=== PATIENT | female | born 1945 | race Caucasian/White ===

== ENCOUNTER 2023-03-07 09:53 | Outpatient (OUT) | payer MEDICARE, SELFPAY ==
--- NOTE | 2023-03-07 09:59 | MM_ITS ---
Patient: HE GATES Exam Date: 03/07/2023 : 1945 Gender:F Ordering : DR Suresh Alvarez . Admission #: [id number] Family : Order #: [id number] CLICK HERE TO VIEW EXAM RADIOLOGY REPORT PROCEDURE: MM TOMOSYNTHESIS SCREENING BI COMPARISON: MG MAMM DX 3D RT CAD, 01/17/2022. MG MAMM SCREEN 3D ANGELICA CAD, 07/17/2021. MG MAMM ANGELICA DIAG W CAD DIG, 02/23/2013. INDICATIONS: Screening mammogram Z12.31 Calculator Name NCI Breast Cancer Risk Assessment Tool 5 Year Breast Cancer Risk 1.80% Lifetime Breast Cancer Risk 2.80% Personal Breast Cancer No Personal Ovarian Cancer No Treatments None Family Cancers Father with prostate cancer at age ~80; Grandmother-paternal with lung cancer at age ~80. LOCATION: [facility] BREAST COMPOSITION: Scattered areas fibroglandular density. FINDINGS: DIAGNOSTIC CATEGORY 2--BENIGN FINDING: RIGHT BREAST: No significant suspicious finding. Scattered benign-appearing calcifications are present. No significant change has occurred. LEFT BREAST: No significant suspicious finding. Scattered benign-appearing calcifications are present. No significant change has occurred. RECOMMENDATIONS: ROUTINE MAMMOGRAM AND CLINICAL EVALUATION IN 12 MONTHS. PLEASE NOTE: A NORMAL MAMMOGRAM DOES NOT EXCLUDE THE POSSIBILITY OF BREAST CANCER. A CLINICALLY SUSPICIOUS PALPABLE LUMP SHOULD BE BIOPSIED. Dictated by: Daniel Buchanan M.D. on 03/07/2023 at 11:38 Approved by: Daniel Buchanan M.D. on 03/07/2023 at 11:43
== END 2023-03-07 09:54 | disposition home or self-care (01) ==
LOC: MAMMO 09:53
PROVIDERS: PCP Family Medicine; Visit Provider Family Medicine
DX: Z12.31 Encounter for screening mammogram for malignant neoplasm of breast (principal); Z80.1 Family history of malignant neoplasm of trachea, bronchus and lung; Z80.42 Family history of malignant neoplasm of prostate
CPT/HCPCS: 77063; 77067

== ENCOUNTER 2023-06-13 09:26 | Outpatient (OUT) | payer MEDICARE, SELFPAY ==
[2023-06-13 10:48] LABS: Anion Gap 10.7; BUN Creatinine Ratio 28.6; Calcium 8.9 mg/dL (8.5-10.1); Carbon Dioxide 28.9 mmol/L (21.0-32.0); Chloride 103 mmol/L (98-107); Estimated GFR (African America >60 (>=60); Estimated GFR (Non-African Ame >60 (>=60); Glucose 89 mg/dL (74-106); Potassium 4.6 mmol/L (3.5-5.1); Sodium 138 mmol/L (136-145)
== END 2023-06-13 09:27 | disposition home or self-care (01) ==
LOC: LAB 09:29
PROVIDERS: PCP Family Medicine; Visit Provider Personal Emergency Response Attendant
DX: Z01.812 Encounter for preprocedural laboratory examination (principal)
CPT/HCPCS: 36415; 80048

== ENCOUNTER 2024-03-09 09:22 | Outpatient (OUT) | payer MEDICARE, SELFPAY ==
--- NOTE | 2024-03-09 09:43 | MM_ITS ---
Patient Name: HE GATES MR#: [id number] : 1945 Exam Date: 03/09/2024 Ordering Doctor: DR Suresh Alvarez . RADIOLOGY REPORT PROCEDURE: MM TOMOSYNTHESIS SCREENING BI COMPARISON: MG MAMM DX 3D RT CAD, 01/17/2022. MM TOMOSYNTHESIS SCREENING BI, 03/07/2023. INDICATIONS: Screening mammogram Calculator Name NCI Breast Cancer Risk Assessment Tool 5 Year Breast Cancer Risk 1.80% Lifetime Breast Cancer Risk 2.60% Personal Breast Cancer No Personal Ovarian Cancer No Treatments None Family Cancers Father with prostate cancer at age ~80; Grandmother-paternal with lung cancer at age ~80. LOCATION: [facility] BREAST COMPOSITION: There are scattered areas of fibroglandular density. FINDINGS: DIAGNOSTIC CATEGORY 2--BENIGN FINDING. NO CHANGE FROM COMPARISON. Scattered benign-appearing nodules are present. Scattered benign-appearing calcifications are present. Scattered benign-appearing lymph nodes are present. RIGHT BREAST: No significant suspicious finding. LEFT BREAST: No significant suspicious finding. RECOMMENDATIONS: ROUTINE MAMMOGRAM AND CLINICAL EVALUATION IN 12 MONTHS. PLEASE NOTE: A NORMAL MAMMOGRAM DOES NOT EXCLUDE THE POSSIBILITY OF BREAST CANCER. A CLINICALLY SUSPICIOUS PALPABLE LUMP SHOULD BE BIOPSIED. Dictated by: Tex Carr MD on 03/09/2024 at 11:01 Approved by: Tex Carr MD on 03/09/2024 at 11:37
== END 2024-03-09 09:23 | disposition home or self-care (01) ==
LOC: MAMMO 09:22
PROVIDERS: PCP Family Medicine; Visit Provider Family Medicine
DX: Z12.31 Encounter for screening mammogram for malignant neoplasm of breast (principal); Z80.42 Family history of malignant neoplasm of prostate; Z80.1 Family history of malignant neoplasm of trachea, bronchus and lung
CPT/HCPCS: 77063; 77067

== ENCOUNTER 2024-07-21 19:52 | Outpatient (OUT) | payer MEDICARE, SELFPAY ==
--- OUTSIDE RECORDS SUMMARY | 2024-07-21 19:55 | XMS_ITS | CCD ---
Author Organization [facility] Care Team Providers Care Cleat Layer Name Role Phone BLAKE, DR NOLEN Admitting Unavailable BLAKE, DR NOLEN Attending Unavailable HOY, DR NOLEN Primary Care Unavailable HOY, DR NOLEN Consulting Unavailable HOY, DR NOLEN Admitting Unavailable HOY, DR NOLEN Attending Unavailable HOY, DR NOLEN Primary Care Unavailable HOY, DR NOLEN Admitting Unavailable HOY, DR NOLEN Attending Unavailable LISSYY, DR NOLEN Primary Care Unavailable BLAKE, DR NOLEN Consulting Unavailable JIM, DR LIBBY Jain Consulting Unavailable BLAKE, DR NOLEN Admitting Unavailable HOY, DR NOLEN Attending Unavailable HOY, DR NOLEN Primary Care Unavailable HOY, DR NOLEN Consulting Unavailable ZIEBER, DR DANIEL Santos Consulting Unavailable BLAKE, DR NOLEN Admitting Unavailable HOChris, DR NOLEN Attending Unavailable HOChris, DR NOLEN Primary Care Unavailable HOY, DR NOLEN Consulting Unavailable WEST, DR LIBBY Jain Consulting Unavailable PRASAD NORWOOD Attending Unavailable DONAVAN FERNANDEZ Attending Unavailable PRASAD NORWOOD Attending Unavailable JR. HE GEORGE C Attending Unavaila PRASAD Wilson Attending Unavailable PRASAD NORWOOD Attending Unavailable PRASAD NORWOOD Attending Unavailable PRASAD NORWOOD Attending Unavailable KENNEDY GUTIÉRREZ Attending Unavailable Callum Alvarez MD Primary Care Provider [phone] BETO Norwood Attending Provider MD Callum Alvarez Primary Care Provider [phone] Callum Alvarez Primary Care Unavailable Prasad Norwood Attending Unavailable Prasad Norwood Admitting Unavailable Allergies Allergy Classification Reported Allergen(s) Allergy Type Date of Onset Reaction(s) Facility (2 sources) Amoxicillin Drug Allergy 05-22-20 17 Vomiting [facility] Repository (1 source) Nitrofurantoin Drug Allergy 02-07-20 21 [facility] Repository (1 source) Penicillin Drug Allergy 12-21-19 17 [facility] Repository (1 source) Sulfonamides (Antibiotic) Drug allergy (disorder) 12-21-19 17 [facility] Repository (4 sources) Amoxicillin Drug Allergy 03-12-20 23 [facility] (5 sources) Nitrofurantoin Drug Allergy 03-12-20 23 Unknown Reaction [facility] (5 sources) Penicillins Propensity to adverse reactions to drug 03-12-20 23 Rash [facility] (4 sources) Sulfacetamide Drug Allergy 03-12-20 23 [facility] (3 sources) Phenazopyridine Drug Allergy 06-18-20 [facility] (2 sources) Sulfonamides (Antibiotic); Translations: [Sulfa (Sulfonamide Antibiotics)] Allergy to substance 07-10-20 Unknown Reaction [facility] (1 source) Amoxicillin Drug Allergy 07-10-20 [facility] Repository (1 source) Nitrofurantoin Drug Allergy 07-10-20 [facility] Rep[facility] (1 source) Penicillins Drug allergy (disorder) 07-10-20 [facility] Rep[facility] Medications Current Medications Medication Drug Class(es) Dates Sig (Normalized) Sig (Original) acetaminophen 500 mg / diphenhydrAMINE hydrochloride 25 mg oral tablet (4 sources) Histamine-1 Receptor Antagonist take 25-500 mg by mouth once as needed diphenhydrAMINE- acetaminophen (Tylenol PM) 25-500 MG per tablet Take 1 tablet by mouth as needed at bedtime for sleep. Active citalopram 10 mg oral tablet (3 sources) Serotonin Reuptake Inhibitor Start: 07-10-2024 Citalopram Active 10 MG PO .prn July 10, 2024 12:00am take 1 tablet by mouth once adonay y citalopram (CeleXA) 10 MG tablet Take 10 mg by mouth Daily Active clindamycin 150 mg oral capsule (4 sources) Lincosamide Antibacterial Start: 12-31-2022 take 4 capsules by mouth every hour clindamycin (Cleocin) 150 MG capsule TAKE 4 CAPSULES BY MOUTH 1 HOUR PRIOR TO DENTAL APPOINTMENT 12/31/2022 Active dexamethasone 6 mg oral tablet (4 sources) Corticosteroid Start: 09-05-2022 take 1 tablet by mouth in the morning dexAMETHasone (Decadron) 6 MG tablet Take 6 mg by mouth in the morning. 09/05/2022 Active meclizine hydrochloride 25 mg oral tablet (4 sources) Antiemetic meclizine (Antivert) 25 MG tablet Take 12.5 mg by mouth 3 (three) times a day as needed for dizziness. Active meloxicam 15 mg oral tablet (5 sources) Nonsteroidal Anti-inflammatory Drug Start: 07-10-2024 Meloxicam Active 15 MG PO .prn July 10, 2024 12:00am take 1 tablet by mouth in the mo rning meloxicam (Mobic) 7.5 MG tablet Take 7.5 mg by mouth in the morning. Active temazepam 7.5 mg oral capsul e (4 sources) Benzodiazepine temazepam (Robinson ril) 7.5 MG capsule Take 15 mg by mouth as needed at bedtime for sleep. Active Problems Active Problems Problem Classification Problem Date Documented Date Episodic/Chronic Mycoses (1 source) Onychomycosis; Translations: [Tinea unguium] 06-23-2024 Episodic Osteoarthritis (5 sources) Unilateral primary osteoarthritis, left hip; Translations: [Bilateral primary osteoarthritis of hip] Onset: 02-20-2022 Chronic Other connective tissue disease (1 source) Pain in both feet; Translations: [Pain in right foot] 06-23-2024 Episodic Other connective tissue disease (1 source) Pain in left foot; Translations: [Pain in left foot] 06-23-2024 Episodic Other lower respiratory disease (2 sources) Snoring; Translations: [Snoring] 06-18-2024 Episodic Other nervous system disorders (4 sources) Bilateral carpal tunnel syndrome; Translations: [Carpal tunnel syndrome, bilateral upper limbs] Onset: 06-15-2024 06-15-2024 Chronic Other nervous system disorders (1 source) Neuropathy; Translations: [Polyneuropathy, unspecified] 06-23-2024 Chronic Other nervous system disorders (4 sources) Paresthesia of left upper limb; Translations: [Paresthesia of skin] Onset: 06-15-2024 06-15-2024 Episodic Other nervous system disorders (4 sources) Paresthesia of hand ; Translations: [Paresthesia of skin] Onset: 06-15-2024 06-15-2024 Episodic Other non-traumatic joint disorders (1 source) Pain of joint of left foot; Translations: [Pain in left ankle and joints of left foot] 06-23-2024 Episodic Other nutritional; endocrine; and metabolic disorders (2 sources) Obesity caused by energy imbalance; Translations: [Other obesity due to excess calories] 06-18-2024 Chronic Residual codes; unclassified (2 sources) Obstructive sleep apnea syndrome; Translations: [Obstructive sleep apnea (adult) (pediatric)] 06-18-2024 Chronic Residual codes; unclassified (2 sources) Hypersomnia; Translations: [Hypersomnia, unspecified] 06-18-2024 Chronic Unclassified (2 sources) CONTACT W/AND (SUSP) EXPOS COVID-19; Translations: [CONTACT W/AND (SUSP) EXPOS COVID-19] Onset: 09-12-2022 Viral infection (1 source) COVID-19; Translations: [COVID-19] Onset: 09-12-2022 Past or Other Problems Problem Classification Problem Date Documented Da te Episodic/Chronic Conditions associated with dizziness or vertigo (5 sources) Dizziness and giddiness; Translations: [Benign paroxysmal vertigo, bilateral] Onset: 10-11-2021 Episodic Nonmalignant breast conditions (4 sources) Mastodynia; Translations: [MASTODYNIA] Onset: 01-17-2022 Episodic Other non-traumatic joint disorders (4 sources) Pain in left hip; Translations: [PAIN IN LEFT HIP] Onset: 02-23-2022 Episodic Unclassified (1 source) CONTACT W/AND (SUSP) EXPOS COVID-19; Translations: [CONTACT W/AND (SUSP) EXPOS COVID-19] Onset: 09-05-2022 Results Test Name Value Interpretation Reference Range Facil ity XR foot LT 2Von 07-10-2024 XR foot LT 2V [place] [address] XRay Report Signed Patient: Ayse Gates MR#: [id number] 319 : 1945 Acct:[id number] Age/Sex: 79 / F ADM Date: 07/10/24 Loc: [place] Room: Type: [facility] Attending Dr: Prasad Norwood DPM Copies to: Prasad Norwood DPM Ordering Provider: Prasad Norwood DPM Date of Service: 07/10/24 XR/XR foot LT 2V: LEFT FOOT INJECTION XR foot LT 2V 07/10/2024 12:35 PM SIGNS AND SYMPTOMS: LEFT FOOT INJECTION PROTOCOL: Intraoperative views of the left foot COMPARISON: None FINDINGS: Intraoperative views demonstrate needle localization along the tarsometatarsal junctions at the base of the third and fourth digits. Cumulative Air Kerma in mGy: 0.369 mGy XR/XR foot LT 2V IMPRESSION: Intraoperative views demonstrate needle localization along the tarsometatarsal junctions at the base of the third and fourth digits. Impression dictated by: Marshal Eastman M.D.07/10/2024 4:05 PM Dictation Location: [place] [address] Transcribed By: JU 07/10/24 160 Dictated By: Marshal Eastman II, MD 07/10/241603 Signed By: 07/10/24 160 Normal [facility] Covid-19 PCR (CVDTB)on 08-17 SARS-CoV-2 (COVID-19) RNA SWEETIE+probe Ql (Unsp spec) Detected Critically abnormal NOT DETECTED [facility] Comment on above: Result Comment: This test is not yet rosalind roved or cleared by the [place] FDA. When there are no FDA-approved or cleared tests available, and other criteria are met, FDA can make tests available under an emergency access mechanism called an Emergency Use Authorization (EUA). The EUA for this test is supported by the Cath Lab Radiological Technologist of Health and Human Service's (HHS's) declaration that circumstances exist to justify the emergency use of in vitro diagnostics for the detection and/or diagnosis of the virus that causes COVID-19. This EUA will remain in effect (meaning this test can be used) for the duration of the COVID-19 declaration justifying emergency of IVDs, unless it is terminated or revoked by FDA (after which the test may no longer be used). Performed By: #### C VDTB #### [facility] [address] [place] [address] Dr. Oliver Muhammad XR HIP LT INJon 02-23-2022 XR HIP LT INJ EXAMINATION: XR HIP LT INJ HISTORY: Pain of left hip joint COMPARISON: No relevant comparison available. FLUOROSCOPY TIME: Fluoro time measures 1.2 minutes and 2 images were obtained. TECHNIQUE: A joint injection was performed in the usual sterile manner after obtaining informed consent. Standard level fluoroscopic mode of operation utilized. FINDINGS: JOINT: Left hip. NEEDLE: 22 gauge, 3.5 spinal needle. MEDICATION: 2cc buffered 1% lidocaine for subcutaneous anesthesia 2cc Omnipaque-300 iodinated contrast to visualize the joint space Mixture of Kenalog 40 mg, 0.5% Bupivacaine 2 mL and Omnipaque 300 10mL was injected into the joint space. TECHNIQUE: Anterior approach with prior localization of the femoral artery. A single stick was successful in gaining access to the joint space. CLINICAL: Near complete resolution of hip pain following the injection. COMPLICATIONS: None. OTHER: Negative. IMPRESSION: Technically successful left hip therapeutic arthrogram Electronically authenticated by: LIBBY FERNANDEZ Date: 2022-02-23 08:35 Normal [facility] MG MAMM DX 3D RT CADon 01-17 MG MAMM DX 3D RT CAD Patient: AYSE GATES Exam Date: 01/17/2022 : 1945 Gender:F Ordering : DR CALLUM ALVAREZ . Admission #: [id number] Family : Order #: [id number] CLICK HERE TO VIEW EXAM RADIOLOGY REPORT PROCEDURE: MAMMOGRAM DIAGNOSTIC 3D RIGHT CAD, 01/17/2022, 13:39 ULTRASOUND BREAST RIGHT LIMITED, 01/17/2022, 14:17 COMPARISON: MG MAMM SCREEN ANGELICA W CAD, 07/08/2020. MG MAMM SCREEN ANGELICA W CAD, 06/16/2018. MG MAMM ANGELICA DIAG W CAD DIG, 02/23/2013. MG MAMM SCREEN 3D ANGELICA CAD, 07/17/2021. INDICATIONS: Pain of breast Calculator Name NCI Breast Cancer Risk Assessment Tool 5 Year Breast Cancer Risk 1.90% Lifetime Breast Cancer Risk 3.40% Personal Breast Cancer No Personal Ovarian Cancer No Treatments None Family Cancers Father with prostate cancer at age 80; Grandmother-paternal with lung cancer at age 80. LOCATION: [facility] BREAST COMPOSITION: Scattered areas fibroglandular density. FINDINGS: DIAGNOSTIC CATEGORY 2--BENIGN FINDING: RIGHT BREAST: Stable calcifications and subareolar fibroglandular tissue. No new or suspicious findings to account for patient's medial breast tenderness. Ultrasound evaluation of the medial breast demonstrates normal appearing fibroglandular tissue; no suspicious findings. RECOMMENDATIONS: ROUTINE MAMMOGRAM AND CLINICAL EVALUATION IN 12 MONTHS. PLEASE NOTE: A NORMAL MAMMOGRAM DOES NOT EXCLUDE THE POSSIBILITY OF BREAST CANCER. A CLINICALLY SUSPICIOUS PALPABLE LUMP SHOULD BE BIOPSIED. Dictated by: Daniel Buchanan M.D. on 01/17/2022 at 15:46 Approved by: Daniel Buchanan M.D. on 01/17/2022 at 15:48 Normal [facility] US BREAST RIGHT LIMITEDon US BREAST RIGHT LIMITED Patient: AYSE GATES Exam Date: 01/17/2022 : 1945 Gender:F Ordering : DR CALLUM ALVAREZ . Admission #: [id number] Family : Order #: [id number] CLICK HERE TO VIEW EXAM RADIOLOGY REPORT PROCEDURE: MAMMOGRAM DIAGNOSTIC 3D RIGHT CAD, 01/17/2022, 13:39 ULTRASOUND BREAST RIGHT LIMITED, 01/17/2022, 14:17 COMPARISON: MG MAMM SCREEN ANGELICA W CAD, 07/08/2020. MG MAMM SCREEN ANGELICA W CAD, 06/16/2018. MG MAMM ANGELICA DIAG W CAD DIG, 02/23/2013. MG MAMM SCREEN 3D ANGELICA CAD, 07/17/2021. INDICATIONS: Pain of breast Calculator Name NCI Breast Cancer Risk Assessment Tool 5 Year Breast Cancer Risk 1.90% Lifetime Breast Cancer Risk 3.40% Personal Breast Cancer No Personal Ovarian Cancer No Treatments None Family Cancers Father with prostate cancer at age 80; Grandmother-paternal with lung cancer at age 80. LOCATION: [facility] BREAST COMPOSITION: Scattered areas fibroglandular density. FINDINGS: DIAGNOSTIC CATEGORY 2--BENIGN FINDING: RIGHT BREAST: Stable calcifications and subareolar fibroglandular tissue. No new or suspicious findings to account for patient's medial breast tenderness. Ultrasound evaluation of the medial breast demonstrates normal appearing fibroglandular tissue; no suspicious findings. RECOMMENDATIONS: ROUTINE MAMMOGRAM AND CLINICAL EVALUATION IN 12 MONTHS. PLEASE NOTE: A NORMAL MAMMOGRAM DOES NOT EXCLUDE THE POSSIBILITY OF BREAST CANCER. A CLINICALLY SUSPICIOUS PALPABLE LUMP SHOULD BE BIOPSIED. Dictated by: Daniel Buchanan M.D. on 01/17/2022 at 15:46 Approved by: Daniel Buchanan M.D. on 01/17/2022 at 15:48 Normal [facility] Vital Signs Date Time Vital Sign Value Performing Clinician Facility 07-10-2024 12:14-0400 Diastolic blood pressure 100 mm[Hg] MD Callum Alvarez Work Phone: [facility] 07-10-2024 12:14-0400 Heart rate 82 /min MD Callum Alvarez Work Phone: [facility] 07-10-2024 12:14-0400 Respiratory rate 16 /min MD Callum Alvarez Work Phone: [facility] 07-10-2024 12:14-0400 SaO2% (BldA) [Mass fraction] 98 % MD Callum Alvarez Work Phone: [facility] 07-10-2024 12:14-0400 Systolic blood pressure 149 mm[Hg] MD Callum Alvarez Work Phone: [facility] 07-10-2024 10:41-0400 Body height 160.02 cm MD Callum Alvarez Work Phone: [facility] 07-10-2024 10:41-0400 Body temperature 97.5 [degF] MD Callum Alvarez Work Phone: [facility] 07-10-2024 10:41-0400 Body weight 99.79 kg MD Callum Alvarez Work Phone: [facility] 06-18-2024 09:32-0400 Body height 160 cm Kennedy Narciso DO Work Phone: [facility] 06-18-2024 09:32-0400 Body mass index (BMI) [Ratio] 38.97 kg/m2 Kennedy Narciso DO Work Phone: [facility] 06-18-2024 09:32-0400 Body weight 99.79 kg Kennedy Narciso DO Work Phone: [facility] 06-18-2024 09:32-0400 Diastolic blood pressure 80 mm[Hg] Kennedy Narciso DO Work Phone: [facility] 06-18-2024 09:32-0400 Heart rate 78 /min Kennedy Narciso DO Work Phone: [facility] 06-18-2024 09:32-0400 SaO2% (BldA) [Mass fraction] 98 % Kennedy Narciso DO Work Phone: [facility] 06-18-2024 09:32-0400 Systolic blood pressure 122 mm[Hg] Kennedy Narciso DO Work Phone: [facility] Healthcare Encounters Encounter Date Encounter Type Care Provider Facility Start: 07-10-2024 End: 07-10-2024 Admission to same day surgery center MD Callum Alvarez Work Phone: [facility] [address] [place] Start: 07-10-2024 End: 07-10-2024 ambulatory MD Callum Alvarez Work Phone: [facility] Work Phone: Start: 06-18-2024 End: 06-18-2024 Office outpatient new 45 minutes Kennedy Gutiérrez DO Work Phone: [facility] [address] Comment on above: MYRIAM (obstructive sle ep apnea); Hypersomnia; Obesity due to excess calories, unspecified class, unspecified whether serious comorbidity present; Snoring Start: 06-18-2024 End: 06-18-2024 ambulatory KENNEDYJAQUAN GUTIÉRREZ Not Available Start: 06-17-2024 End: 06-17-2024 BamSnapwizo flowsheet Prasad Norwood DPM Work Phone: [facility] Start: 06-17-2024 End: 06-17-2024 Bamboo flowsheet Prasad Norwood DPM Work Phone: [facility] Start: 06-17-2024 End: 06-17-2024 Patient encounter procedure Prasad Norwood DPM Work Phone: [facility] Comment on above: Onychomycosis (Prima ry Dx); Pain in both feet; Neuropathy; Osteoarthritis of left ankle and foot; Left foot pain; Arthralgia of left foot Start: 06-17-2024 End: 06-17-2024 ambulatory PRASAD George TOMMY Not Available Start: 06-10-2024 End: 06-10-2024 ambulatory PRASAD NORWOOD Not Available Start: 03-31-2024 End: 03-31-2024 ambulatory PRASAD NORWOOD Not Available Start: 12-31-2023 End: 12-31-2023 ambulatory PRASAD NORWOOD Not Available Start: 12-18-2023 End: 12-18-2023 ambulatory MAGDI NELSON Not Available Start: 11-25-2023 End: 11-25-2023 ambulatory DONAVAN FERNANDEZ Not Available Start: 09-30-2023 End: 09-30-2023 ambulatory PRASAD NORWOOD Not Available Start: 07-29-2023 End: 07-29-2023 ambulatory PRASAD NORWOOD Not Available Start: 09-05-2022 End: 09-05-[address] CALLUM ALVAREZ Facility:[facility] Start: 02-23-2022 End: 02-23-[address] CALLUM ALVAREZ Facility:[facility] Start: 02-20-2022 End: 02-21-[address] CALLUM ALVAREZ Facility:[facility] Start: 01-17-2022 End: 01-18-[address] CALLUM ALVAREZ Facility:[facility] Start: 10-11-2021 End: 10-27-[address] CALLUM ALVAREZ Facility:[facility] Plan of Treatment Date Care Activity Detail Author Start: 12-07-2024 End: 12-07-2024 Patient encounter procedure 12/07/2024 9:45 AM EDT Procedure Visit [facility] [address] [place] [phone] Prasad Norwood DPM [address] [place] [address] [facility] Start: 09-29-2024 End: 09-29-2024 Patient encounter procedure 09/29/2024 11:00 AM EST Office Visit [facility] [address] [place] [phone] Azeb Renae, ZAFAR [address] [place] [facility] Start: 09-28-2024 End: 09-28-2024 Patient encounter procedure 09/28/2024 9:45 AM EST Procedure Visit [facility] [address] [place] [address] Prasad Norwood, DPM [address] [place] [address] [facility] Start: 07-10-2024 [facility] Start: 07-10-2024 Injection using fluoroscopic guidance OR Foot C-Arm Guided Injection (Left) [facility] Start: 06-18-2024 End: 06-18-2024 Patient encounter procedure 06/18/2024 10:00 AM EDT [facility] [address] [facility] [place] [phone] Kennedy Gutiérrez DO [address] [place] [id number] [facility] Start: 06-17-2024 End: 06-17-2024 Patient encounter procedure 06/17/2024 2:00 PM EDT Procedure Visit [facility] [address] [place] [address] Prasad Norwood, DPM [address] [place] [address] Arrived [facility] Comment on above: Arrived Start: 05-17-2024 Influenza vaccination Influenza Vacc ine (#1) [facility] Start: 12-15-2016 Pneumococcal Vaccine : 65+ Years (2 of 2 - PCV) Pneumococcal Vaccine: 65+ Years (2 of 2 - PCV) [facility] Patient Education Know your Meds [facility] Work Phone: Patient referral [facility] Work Phone: Immunizations Immunization Date Immunization Notes Care Provider Sapphire soliman 06-21-2023 influenza virus vacc ine, unspecified formulation Prasad Norwood DPM Work Phone: [facility] Payers Date Payer Category Payer Self-pay 2022 Medicare AETNA MEDICARE A DVANTAGE AETNA MEDICARE REPLACEMENT [id number] 2022-Present [address] [place] [address] [id number] 1961 Medicare [id number] 1945 Unknown [id number] 1945 Unknown [id number] [id number] 1945 Unknown [id number] [id number] 1945 Unknown [id number] [id number] 1945 Unknown [id number] [id number] 1945 Unknown [id number] 2.16.840.1.693480.3.579.2.1259 1945 Unknown [id number] 2.16.840.1.464501.3.579.2.1259 1945 Unknown [id number] 2.16.840.1.812277.3.579.2.1259 1943 Unknown [id number] 2.16.840.1.235968.3.579.2.1259 1943 Unknown [id number] 2.16.840.1.194191.3.579.2.1259 1945 Unknown [id number] 2.16.840.1.720030.3.579.2.1259 1945 Unknown [id number] 2.16.840.1.226775.3.579.2.1259 1943 Unknown [id number] [id number] 1945 Unknown [id number] [id number] Unknown [id number] [id number] Social History Date Type Detail Facility Start: 03-20-2023 Tobacco smoking stat [facility] Never smoked tobacco [facility] Start: 03-20-2023 Tobacco use and exposure Smokeless tobacco non-user [facility] Start: 06-10-2024 End: 06-17-2024 Alcoholic beverage intake Lifetime non-drinker (finding) [facility] Start: 06-10-2024 End: 06-18-2024 History of Social function [facility] Start: 06-10-2024 End: 06-18-2024 Tobacco use panel [facility] Start: 05-29-2023 Alcohol Comment caffeine intak e: 3-4 cups per day [facility] Start: 1945 Sex assigned at Not on file [facility] Start: 1945 Sex Assigned At Female F [facility] Goals Date Patient Goal Desired Activity /State History of Present illness Narrative 06-18-2024 Kennedy Gutiérrez DO - 06/18/2024 9:45 AM EDT Note Date & Type Note Facility 06-18-2024 History of Presen t illness Narrative Images from the original note were not included. Chief Complaint Patient presents with Sleep Apnea Subjective Ayse Gates, 79 y.o., female referred by Dr Alvarez for sleep apnea. She was previously seen in the sleep clinic in [place] for MYRIAM but has not been seen for 4-5 years she believes. She states that she had breast reduction surgery and they took off 3 pounds but she had always been a shallow breather because of the weight on her chest. The patient states that she has had difficulty with sleep for the past 50 years. She had been doing well with the machine and got used to it and was wearing it for about 1.5 years. She then started to get some sinus infections and had been on courses of antibiotics. She decided to stop using the machine and then the sinus infections stopped. She has not used the machine in about 5 years. She is now not sleeping well again. Dr. Alvarez suggested getting back on the machine. She states that she sleeps 4 hours on a good night. She has a sleep number bed. She take a tylenol pm and has tried melatonin. She is waking up several times a night due to aches and pains. She does not get out of bed and is able to fall back asleep. She goes to bed at 10pm and gets up at 6am. She states that she is tired the next day. She has some aches and pains that also wake her up. She is frigidity and restless. She is always active. Sleep ND Patient Symptoms Snores: Yes Wakes gasping for breath: No Dozes off if inactive: No Dozes off with activity: No Wakes a lot through the night: Yes Witnessed episodes of apnea: No Is sleep restful or restorative: No Bedtime: 10 pm Is it hard or easy to fall asleep: Easy Wake time: 5 am out of bed at 6 am Takes naps: Yes Feels better after napping: No Sleepwalk: No Sleeptalk: No Vivid Dreams: Yes Acts out dreams: No Sleep related hallucinations: No Sleep paralysis: No Cataplexy: No Restless Leg: Yes Kicking/Jerking at night: Yes TV on while sleeping: No Smoke before bed: No Caffeine within 3 hours before bed: No Past Medical History: Diagnosis Date Acute sinusitis Arthritis Dizziness GERD (gastroesophageal reflux disease) H/O: hysterectomy Hiatal hernia History of left knee replacement Hyperlipidemia (CMS/HCC) Lumbar radiculopathy Mass in neck Nerve damage of left foot Seasonal allergic rhinitis Sleep apnea Vertigo Past Surgical History: Procedure Laterality Date APPENDECTOMY 1986 CARPAL TUNNEL RELEASE Right 06/18/2023 DR HE DILATION AND CURETTAGE OF UTERUS 1984 HEMORRHOIDECTOMY 1985 HYSTERECTOMY 1986 KNEE SURGERY Right 2004 (R) KNEE SCOPE - DR. HE KNEE SURGERY Left 2007 (L) KNEE SCOPE DR. HE OTHER SURGICAL HISTORY spinal injection, 2016;2017;2018 OTHER SURGICAL HISTORY 2019 nerves cauterized in back MA BREAST REDUCTION 2010 MA REMOVE TONSILS/ADENOIDS,12+ Y/O TOTAL KNEE ARTHROPLASTY Left 06/20/2017 DR HE Family History Problem Relation Name Age of Onset Heart disease Mother Cancer Father Social History Tobacco Use Smoking status: Never Smokeless tobacco: Never Substance Use Topics Alcohol use: Never Comment: caffeine intake: 3-4 cups per day Allergies: Amoxicillin, Macrobid [nitrofurantoin], Penicillins, Phenazopyridine, and Sulfacetamide General: No fever or chills HEENT: No nasal congestion or runny nose Pulmonary: No shortness of breath or cough Cardiovascular: No chest pain or palpitations GI: No nausea or vomiting : No dysuria or hematuria Musculoskeletal: No new aches or pains or muscle weakness Infectious: no recurrent fevers or infections Dermatologic: No rashes or skin lesions Neurologic: No new headaches or dizziness Vitals: 06/18/24 0932 BP: 122/80 Pulse: 78 SpO2: 98% Body mass index is 38.97 kg/m . weight: 220 lb Neurologic exam: General: Normal body habitus, cooperative, pleasant Mental status: Awake, alert to person, place and time. Recent and remote memory are intact. Attention and concentration are normal. Fund of knowledge is appropriate for level of education. HEENT: NC/AT Cranial nerves: CN II: Visual barroso full to confrontation. No loss of vision CN III, IV, : pupils equal round and reactive to light. Extraocular movements intact. No ptosis present. CN V: Facial sensation is normal. CN VII: Full and symmetric facial movement. CN VIII: Hearing is normal CN IX and X: Palate elevates symmetrically. CN XI: Shoulder shrug is normal bilaterally. CN XII: Tongue is midline without atrophy or fasciculation. Speech: Clear and fluent no aphasia or dysarthria Pronator drift: Negative bilateral upper extremity Coordination: Intact, no signs of dysmetria Good finger to nose and rapid alternating movements Sensory: Sensation is intact to light, temperature and vibratory touch throughout four extremities. Pinprick intact in all four extremities. Motor: LUE 5/5 RUE 5/5 LLE 5/5 RLE 5/5 Tone: Physiologic, no tremor, bradykinesia or rigidity DTR: Bilateral Biceps 2/4 Bilateral BR 2/4 Bilateral Patellar 2/4 No spasticity Gait: Normal to casual gait Romberg's Negative Review and summary of old records: Assessment/Plan Diagnoses and all orders for this visit: MYRIAM (obstructive sleep apnea) Hypersomnia Obesity due to excess calories, unspecified class, unspecified whether serious comorbidity present Snoring 79-year-old female with a known history of obstructive sleep apnea who discontinued her machine approximately 4-5 years ago. She was using it for about a year and half and then had issues with sinus infections. When she stopped using the mask and machine her sinus infections improved. She is now having more daytime hypersomnia difficulty sleeping snoring waking up through the night. She felt like the pressure was too high for her previously. At this time she would likely benefit from a split night study to prove that she has sleep apnea and then determine what pressure would be best for her. 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 Plan Obtain her previous records from the sleep clinic Split night study to assess for sleep apnea and what pressure would work best Plan on setting on an auto hovering around the optimal pressure on her split night study The patient was counseled on proper sleep hygiene and adequate hours of sleep. The patient was counseled on the risks of stroke, IA, and sudden with MYRIAM, along with the need for compliance with the CPAP/BiPAP treatment. The diagnosis was all discussed with the patient. All questions were answered and they agreed with the treatment plan. Patient will call if there are any new issues or questions. Pt has been fully educated on their diagnosis, treatment options, follow up plan, and return instructions Return to clinic: 3 months documented in this encounter [facility] History of Present illness Narrative 06-17-2024 Prasad Norwood DPM - 06/17/2024 2:00 PM EDT Note Date & Type Note Facility 06-17-2024 History of Presen t illness Narrative Images from the original note were not included. History of Present Illness Diabetic/Routine Nail Care: Patient presents in office today for left foot pain along the outside of her foot. Pt states she gets sharp pains. Pt would like an injection. She has no other concerns today. Location: nails on bilateral feet. Severity of symptoms: mild. Onset: gradual. Status: no change. Context: hard to trim, hard to reach. NAILS: thickened, discolored, pain. Relieved by: debridement, filing down nails, clipping nails. History of ulcers/wounds: no. PCP: Dr. Alvarez. Date of Last visit: 06/09. Aggravated by: shoe gear, pressure. Risk factors: wearing enclosed shoes. Allergies Penicillin G Sodium: RASH - Side Effects Sulfacetamide Sodium: UNKNOWN Amoxicillin: vomiting - Side Effects environmental Macrobid Examination General Examination: GENERAL EXAMINATIONawake, aware of surroundings, in no acute distress. FOOT EXAM: Date of Last Foot Exam 06/17/24 Vascular: DORSALIS PEDIS PULSE:bilaterally, 2/4. POSTERIOR TIBIAL PULSE:bilaterally, 1/4. TEMPERATURE GRADIENT:warm to cool. EDEMA:to the right ankle, lateral left foot. CAPILLARY FILLING TIME(sec):capillary fill intact bilateral digits less than 3 secs. Neurologic: VIBRATORY:normal . SEMMES-ALONZO 5.07 MONOFILAMENTnormal . NEUROLOGICEvidence of paraesthesia with palpation to he distal end and medial aspect of the left hallux . Dermatologic: HYPERTROPHIC LESION:medial plantat navicular tuberosity right. HYPERKERATOSIS: Location: over the plantar medial navicular tuberosity R>L. NAIL PATHOLOGY:digits 1-5 right, 2-5 are intact. Left hallux nail has been removed. Nails 2-5 left, 1-5 are elongated, mildly thickened and discolored. SKIN PATHOLOGY:texture, turgor, hair growth, within normal limits. Orthopedic: FOOT MORPHOLOGY:Planus with significant arch collapse. There is a collapse of medial longitudinal arch with everted heel position and transverse deformity of the forefoot noted bilateral. JOINT RANGE OF MOTION:limited ankle joint ROM. DEFORMITIES:promience to the plantar medial tuberosity of the navicular bilateral. PAIN ELICITED WITH PALPATION: Central lateral aspect of the tarsometatarsal joint left. Mild pain along the lateral left foot and calcaneal cuboid joint. Increased tenderness with palpation to the fourth and fifth metatarsal joint and associated cuboid. No pain with compression to the left midfoot PAIN ELICITED WITH ROM:plantarflexion, inversion right ankle. MUSCLE STRENGTH5/5 for all pedal groups tested. Assessments 1. Dermatophytosis of nail - B35.1 2. Nerve damage of left foot - G57.92 (Primary) 3. Right foot pain - M79.671 4. Left foot pain - M79.672 5. Other specified disease of nail - L60.8 6. Posterior tibial tendonitis of right leg - M76.821 7. Corns and callosities - L84 8. Posterior tibial tendon dysfunction - M76.829 9. Osteoarthritis right midfoot Treatment: Onychomycosis: 1. All mycotic and/or dystrophic nails were debrided in length and thickness by manual and mechanical means. 2. Advised patient of proper foot care to prevent any future complications including daily monitoring of the feet. 3. RTC: 9-12 weeks or as needed if problems arise as patient would like to continue to come in for routine nail care appointments to prevent future pain and problems developing from the overgrowth of the toenails. Osteoarthritis right midfoot: Patient brought her orthotics today in to be modified due to increased pain to the left midfoot. We will add a lateral flange in order to prevent slipping along the outside of the insole and hopefully increased support to the midfoot. We are waiting on getting her scheduled for a fluoroscopically guided injection. documented in this encounter [facility] Clinical Note 02-20-2022 Note Date & Type Note Facility 02-20-2022 Note PROCEDURE: XR HIP LT 2 3V W PELVIS COMPARISON: 07/21/2021 HISTORY: Idiopathic osteoarthritis FINDINGS: BONES:No acute fracture or dislocation. Bilateral hip osteoarthropathy with joint space narrowing and marginal osteophyte formation likely lleg-as-ysva articulation. Moderate degenerative changes of the spine SOFT TISSUES:Negative. No visible soft tissue swelling. EFFUSION:None visible. OTHER: Extensive pelvic calcifications, vascular phleboliths are favored IMPRESSION: Moderate to severe bilateral hip osteoarthritis Electronically authenticated by: LIBBY FERNANDEZ Date: 2022-02-20 17:42 [facility] Evaluation note Note Date & Type Note Facility Evaluation note Diagnosis MYRIAM (obstructive sleep apnea) Obstructive sleep apnea (adult) (pediatric) Hypersomnia Hypersomnia, unspecified Obesity due to excess calories, unspecified class, unspecified whether serious comorbidity present Snoring Other dyspnea and respiratory abnormality documented in this encounter [facility] Evaluation note Note Date & Type Note Facility Evaluation note Diagnosis Onychomycosis- Primary Dermatophytosis of nail Pain in both feet Neuropathy Mononeuritis of unspecified site Osteoarthritis of left ankle and foot Left foot pain Pain in soft tissues of limb Arthralgia of left foot documented in this encounter [facility] Evaluation note Note Date & Type Note Facility Evaluation note No assessment information availa ble [facility] Work Phone: Hospital Discharge instructions Note Date & Type Note Facility Hospital Discharge instructions Additional Instructions Patient can return to normal shoe gear and activity as tolerated. Remove band-aid later today or tomorrow. Apply heat to the foot if needed. Take Motrin or Tylenol for pain. [facility] Work Phone: Summary Purpose Family History No Family History Records Found Relationship Condition Age at Onset Recorded Date/T joana mother Congestive heart failure Unknown father Malignant neoplasm of prostate Unknown sister Malignant neoplasm of breast Unknown Advance Directives No Advanced Directives Records Found Advance Directive Response Recorded Date/ Time Advance Directives No July 09, 2024 11:18am Chief Complaint and Reason for Visit Chief Complaint Arthralgia Additional Source Comments INFORMATION SOURCE (unrecogn ized section and content) DATE CREATED AUTHOR 09/12/2022 [facility] pital DATE CREATED AUTHOR AUTHOR'S ORGANIZ ATION 06/19/2024 [facility] EPIC DATE CREATED AUTHOR AUTHOR'S ORGANIZ ATION 07/13/2024 [facility] Care Teams (unrecognized sec tion and content) Cleat Layer Relationship Specialty Start Date End Date Callum Alvarez MD [address] [place] [address] PCP - General Family Medicine 02/20/23 Cleat Layer Relationship Specialty Start Date End Date Callum Alvarez MD [address] [place] [address] PCP - General Family Medicine 02/20/23 Team Status: Active Member Role Status Dates Callum Alvarez MD Primary Care Provider Active Team Status: Inactive Member Role Status Dates Prasad Norwood DPM Attending Provider Active Start: July 10, 2024 End: July 10, 2024 Callum Alvarez MD Primary Care Provider Active Start: July 10, 2024 End: July 10, 2024 Reason for Visit (unrecogniz ed section and content) Reason Comments Sleep Apnea FOR RECORDS PERTAINING TO PATIENTS WHO ARE OR HAVE BEEN ENROLLED IN A CHEMICAL DEPENDENCY/SUBSTANCEABUSE PROGRAM, SOME INFORMATION MAY BE OMITTED. This clinical summary was aggregated from multiple sources. Caution should be exercised in using it in the provision of clinical care. This summary normalizes information from multiple sources, and as a consequence, information in this document may materially change the coding, format and clinical context of patient data. In addition, data may be omitted in some cases. CLINICAL DECISIONS SHOULD BE BASED ON THE PRIMARY CLINICAL RECORDS. [facility]. provides no warranty or guarantee of the accuracy or completeness of information in this document.
== END 2024-07-21 19:53 | disposition home or self-care (01) ==
LOC: SLEEP 19:52
PROVIDERS: PCP Psychiatry & Neurology Neurology; Visit Provider Psychiatry & Neurology Neurology
DX: G47.33 Obstructive sleep apnea (adult) (pediatric) (principal)
CPT/HCPCS: 95811

== ENCOUNTER 2025-03-11 10:37 | Outpatient (OUT) | payer MEDICARE, SELFPAY ==
--- OUTSIDE RECORDS SUMMARY | 2024-08-31 05:08 | XMS_ITS ---
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 Name Role Phone Lalit Alvarez Primary Care Provider REASON FOR VISIT uti Medications Medication SIG (Take, Route, Frequency, Duration) Notes Start Date End Date Status Ciprofloxacin HCl 500 MG 1 tablet Orally every 12 hrs for 10 days 08/31/2024 Active Encounters Encounter Location Date Provider Diagnosis [facility] [address] [place] [address] 08/31/2024 Lalit Alvarez Plan Of Treatment Medication Medication Name Sig Start Date Stop Date Notes Ciprofloxacin HCl 500 MG 1 tablet Orally every 12 hrs for 10 days 08/31/2024 Progress Notes * Ayse HELLER LDOB:[birth year] (79 yo F)Acc No.[id number]:08/31/2024 Patient: Trell BARTHOLOMEWAyse :1945 A ge:79 Y S ex:Female Address: [place], [address] * Refills Start Ciprofloxacin HCl Tablet, 500 MG, Orally, 20 Tablet, 1 tablet, every 12 hrs, 10 days * true * Date: Generated for Printi ng/Faxing/eTransmitting on: 0 03/11/2025 10:40 AM EDT
--- OUTSIDE RECORDS SUMMARY | 2024-11-03 06:00 | XMS_ITS ---
Author Organization The [facility] in [place] Address [address] [place] [address] Care Team Providers Care Sales And Marketing Analyst Name Role Phone Lalit Alvarez Primary Care Provider [phone] Allergies Allergen (clinical drug ingredient) Drug/Non Drug Allergy documented on EMR Reaction Allergy Type Onset Date Status nitrofurantoin, macrocrystals / nitrofurantoin, monohydrate Macrobid Unknown Drug Allergy Active amoxicillin Amoxicillin Unknown Drug Allergy Act bladimir Substance with sulfonamide structure and antibacterial mechanism of action (substance) Sulfa Antibiotics Unknown Drug Allergy Active Penicillin Unknown Drug Allergy Active Results Component Value Reference Range Notes COVID-19, Flu A+B IH (Not ye t reviewed by provider) Interpretation: Performing Lab: Notes/Report: COVID neg FLU A neg FLU B neg Control pos REASON FOR VISIT Started - very tired, congestion, no fever Medications Medication SIG (Take, Route, Frequency, Duration) Notes Start Date End Date Status Ciprofloxacin HCl 500 MG 1 tablet Orally every 12 hrs for 10 days 11/03/2024 Active Meloxicam 15 MG TAKE 1 TABLET BY SUSANA TH EVERY DAY for 30 days Active CeleXA 10 MG 1 tablet Orally Once a day for 30 days 05/28/2024 Active Tylenol PM Extra Strength 500-25 MG 1 tablet at bedtime as needed Orally Once a day 05/28/2024 Active Social History Tobacco Use: Social History Observation Description Date Details (start date - stop date) Never Smoker NA - NA Tobacco Use/Smoking Question Answer Notes Patient is a nonsmoker AUDIT-C (Standard) Question Answer Notes Did you have a drink containing alcohol in the p ast year? No Points 0 Interpretation Negative Problems Problem Type SNOMED Code ICD Code Onset Dates Problem Status W/U Status Risk Notes Problem Morbid obesity (disorder) (173532967) Morbid (severe) obesity due to excess calories (E66.01) Active confirmed Vital Signs Blood pressure systolic 110 mm Hg 11/03/19 25 Blood pressure diastolic 78 mm Hg 025 Height 63 in 11/03/2024 Weight 219.0 lbs 11/03/2024 BMI 38.79 kg/m2 11/03/2024 Encounters Encounter Location Date Provider Diagnosis [facility] [address] [place] [address] 11/03/2024 Lalit Hoy Nasal congestion R09 .81 ; Morbid (severe) obesity due to excess calories E66.01 and Acute non-recurrent sinusitis, unspecified location J01.90 Assessments Encounter Date Diagnosis (ICD Code) Assessment Notes Treatment Notes Treatment Clinical Notes Section Notes 11/03/2024 Nasal congestion (ICD-10 - R09.81) 11/03/2024 Morbid (severe) obesity due to excess calories (ICD-10 - E66.01) 11/03/2024 Acute non-recurrent sinusitis, unspecified location (ICD-10 - J01.90) Rest and drink more liquids, especially water. You may use a humidifier or vaporizer to help keep the drainage moist. Qokd-yrz-epyffbn Nasal Saline may help the stuffy and runny nose. Use Ibuprofen and or Tylenol as needed for fever, chills, body aches or pain. Children 5 years old should not be given xucc-uzv-tbevsgg cough and cold medications such as guaifenesin and dextromethorphan. If you're over age 5, you may try notg-jyr-oehfbmy cold medications such as guaifenesin and dextromethorphan, or multi-symptom cold reliever such as Dayquil to help reduce the symptoms. Antibiotics have been prescribed. You should take these until completed and follow the directions. Antibiotics can sometimes cause upset stomach, and in rare cases, serious allergic reactions or serious gastrointestinal problems. If you start having severe abdominal pain, severe vomiting, or bloody diarrhea, you should be reevaluated by your physician or urgent care immediately. Follow up with your Primary Care Provider or return to clinic if symptoms do not improve within 3-5 days Plan Of Treatment Medication Medication Name Sig Start Date Stop Date Notes Ciprofloxacin HCl 500 MG 1 tablet Orally every 12 hrs for 10 days 11/03/2024 Treatment Notes Assessment Notes Acute non-recurrent sinusiti s, unspecified location Rest and drink more liquids, especially water. You may use a humidifier or vaporizer to help keep the drainage moist. Mjea-ogu-beffryl Nasal Saline may help the stuffy and runny nose. Use Ibuprofen and or Tylenol as needed for fever, chills, body aches or pain. Children 5 years old should not be given utck-hwp-jnprvij cough and cold medications such as guaifenesin and dextromethorphan. If you're over age 5, you may try jpiq-zhz-bhwjzuw cold medications such as guaifenesin and dextromethorphan, or multi-symptom cold reliever such as Dayquil to help reduce the symptoms. Antibiotics have been prescribed. You should take these until completed and follow the directions. Antibiotics can sometimes cause upset stomach, and in rare cases, serious allergic reactions or serious gastrointestinal problems. If you start having severe abdominal pain, severe vomiting, or bloody diarrhea, you should be reevaluated by your physician or urgent care immediately. Follow up with your Primary Care Provider or return to clinic if symptoms do not improve within 3-5 days Pending Test Test Name Order Date COVID-19, Flu A+B IH 11/03/2024 Next Appt Details Follow Up: 3-5 days if not i mproving, Reason: Progress Notes * Asye HELLER LDOB:[birth year] (79 yo F)Acc No.[id number]:11/03/2024 Progress Note Patient: Ayse VELEZ Provider: Danni Alvarez ([facility])MD :1945 A ge:79 Y S ex:Female Date:11/03/2024 Address:[address] [place], [place] [address] Check In:10:15 AM ESTCheck O ut:10:52 AM EST Subjective: * Chief Complaints: * S tarted - very tired, congestion, no fever * HPI: D epression Screening: PHQ-2 (2015 Edition) T otal Score 2 L ittle interest or pleasure in doing things??More than half the days F eeling down, depressed, or hopeless? N ot at all D epression Screening: PHQ-9 L ittle interest or pleasure in doing things?More than half the days F eeling down, depressed, or hopeless N ot at all T rouble falling or staying asleep, or sleeping too much M ore than half the days F eeling tired or having little energy N early every day P oor appetite or overeating N early every day F eeling bad about yourself or that you are a failure, or have let yourself or your family down N ot at all T rouble concentrating on things, such as reading the newspaper or watching television N ot at all M oving or speaking so slowly that other people could have noticed; or the opposite, being so fidgety or restless that you have been moving around a lot more than usual N ot at all T houghts that you would be better off or of hurting yourself in some way N ot at all T otal Score 1 0 I nterpretation M oderate Depression S inusitis: The patient complains of symptoms of sinus infection. The symptoms have been present for 1-2 days. The symptoms are moderate. Symptomatic treatment has included OTC medication. Associated symptoms include headache, facial pain, runny nose, nasal congestion. * ROS: S kin: Rash d enies. E NT: Comments S ee HPI for details. C ardiovascular: Edema d enies. P alpitations d enies. ? R espiratory: Chest pain d enies. C ough d enies. W heezing?denies. G astrointestinal: Abdominal pain d enies. N ausea d enies. V omiting d enies. * Active Problem List I78.1 Nevus, non-neoplasti c Modified On:01/30/2023/U Status:confirmed M16.12 Unilateral primary o steoarthritis, left hip Modified On:01/30/2023/U Status:confirmed R07.9 Chest pain, unspecif ied Modified On:01/30/2023U Status:confirmed R30.0 Dysuria Modified On:01/30/2023/U Status:confirmed S16.1XXA Strain of muscle, fa scia and tendon at neck level, initial encounter Modified On:01/30/2023 Status:confirmed S50.01XA Contusion of right e lbow, initial encounter Modified On:01/30/2023 Status:confirmed Z01.810 Encounter for prepro cedural cardiovascular examination Modified On:01/30/2023 Status:confirmed Z91.81 History of falling Modified On:01/30/2023 Status:confirmed R07.9 Chest pain Modified On:01/30/2023 Status:confirmed E78.5 Hyperlipidemia Modified On:01/30/2023 Status:confirmed R94.31 Abnormal EKG Modified On:01/30/2023 Status:confirmed G47.30 Sleep apnea Modified On:01/30/2023 Status:confirmed R42 Vertigo Modified On:01/30/2023 Status:confirmed M25.569 Knee pain Modified On:01/30/2023 Status:confirmed M25.559 Hip pain Modified On:01/30/2023U Status:confirmed M25.579 Ankle pain Modified On:01/30/2023 Status:confirmed N64.4 Breast pain, right Modified On:01/30/2023 Status:confirmed M79.641 Hand pain, right Modified On:01/30/2023U Status:confirmed M25.551 Hip pain, right Modified On:01/30/2023 Status:confirmed J01.90 Acute sinusitis Modified On:01/30/2023U Status:confirmed M79.606 Leg pain Modified On:01/30/2023U Status:confirmed L73.9 Folliculitis Modified On:01/30/2023U Status:confirmed J06.9 Upper respiratory in fection Modified On:01/30/2023 Status:confirmed M47.812 Cervical spondylosis Modified On:01/30/2023U Status:confirmed S83.249A Acute medial menisca l tear Modified On:01/30/2023U Status:confirmed M47.816 Lumbar spondylosis Modified On:05/17/2023W/U Status:confirmed J30.2 Allergic rhinitis, s easonal Modified On:01/30/2023 Status:confirmed M75.81 Tendinitis of right shoulder Modified On:01/30/2023U Status:confirmed M23.92 Internal derangement of left knee Modified On:01/30/2023U Status:confirmed R20.9 Paresthesias/numbnes s Modified On:01/30/2023U Status:confirmed H00.019 Stye Modified On:01/30/2023U Status:confirmed N30.00 Acute cystitis Modified On:01/30/2023 Status:confirmed K44.9 Hernia, hiatal Modified On:01/30/2023 Status:confirmed K21.9 Gastro-esophageal re flux disease Modified On:01/30/2023 Status:confirmed M54.16 Lumbar radiculopathy , right Modified On:01/30/2023U Status:confirmed R22.1 Mass of neck Modified On:01/30/2023U Status:confirmed D18.00 Capillary hemangioma Modified On:01/30/2023U Status:confirmed M17.9 Degenerative joint d isease of left knee Modified On:01/30/2023U Status:confirmed Z98.890 H/O arthroscopy of l eft knee Modified On:01/30/2023U Status:confirmed U07.1 COVID-19 virus infec tion Modified On:01/30/2023U Status:confirmed M54.50 Low back pain, unspe cified Modified On:01/30/2023U Status:confirmed B35.4 Tinea corporis Modified On:01/30/2023U Status:confirmed G47.00 Insomnia, unspecifie d Modified On:01/21/2023U Status:confirmed R20.2 Arm paresthesia, lef t Modified On:02/04/2023U Status:confirmed G56.03 Carpal tunnel syndro me, bilateral upper limbs Modified On:02/18/2023U Status:confirmed M65.351 Trigger finger, righ t little finger Modified On:03/12/2024W/U Status:confirmed E66.01 Morbid (severe) obes ity due to excess calories Modified On:11/03/2024W/U Status:confirmed * Medical History: * Surgical History: L eft hip injections blation lumbar spine, steroid injection 2015Left knee replacement 2017breast reduction 2010Hysterectomy 1987 * Hospitalization/Major Diagno stic Procedure: L eft knee replacement * Family History: F ather: 96 yrs, Parkinsons. M other: 86 yrs, Heart Failure. S ister(s): alive 86 yrs, breast cancer. D lupe(s): alive, migraines, Autistic, schizophrenia, paranoia, hearing impaired. 1 sister(s) . 3 daughter(s) . . * Social History: T obacco Use: T obacco Use/Smoking P atient is a n onsmoker D rug/Alcohol: A RADHA-C (Standard) D id you have a drink containing alcohol in the past year? N o P oints 0 I nterpretation N egative * Medications: T akingCeleXA(Citalopram Hydrobromide) 10 MG Tablet 1 tablet Orally Once a day Meloxicam 15 MG Tablet TAKE 1 TABLET BY MOUTH EVERY DAY Tylenol PM Extra Strength(diphenhydrAMINE-APAP (sleep)) 500-25 MG Tablet 1 tablet at bedtime as needed Orally Once a day Taking CeleXA(Citalopram Hydrobromide) 10 MG Tablet 1 tablet Orally Once a day Taking Meloxicam 15 MG Tablet TAKE 1 TABLET BY MOUTH EVERY DAY Taking Tylenol PM Extra Strength(diphenhydrAMINE-APAP (sleep)) 500-25 MG Tablet 1 tablet at bedtime as needed Orally Once a day DiscontinuedCiprofloxacin HCl 500 MG Tablet 1 tablet Orally every 12 hrs Medication List reviewed and reconciled with the patientDiscontinued Ciprofloxacin HCl 500 MG Tablet 1 tablet Orally every 12 hrs Medication List reviewed and reconciled with the patient * Allergies: P enicillin - Criticality HighSulfa Antibiotics - Criticality HighAmoxicillin - Criticality HighMacrobidno[Allergies Verified] Objective: * Vitals: W t:219.0lbs, Ht: 63 in, BP:110/78mm Hg, BMI:38.79Index, Ht-cm: 160.02 cm, Wt-k.34 kg. * Examination: G eneral Examination: GENERAL APPEARANCE: in no acute distress, well developed, well nourished. ENT: ear and nose external appearance normal, tympanic membranes clear bilaterally, facial tenderness to palpation over sinuses. EYES: pupils equal, round, reactive to light and accomodations. ORAL CAVITY: mucosa moist. NECK: n patria supple, full range of motion, no cervical lymphadenopathy. LUNGS: c lear to auscultation bilaterally. CARDIO: no murmurs, regular rate and rhythm, S1, S2 normal. ABDOMEN: soft, nontender , not distended, bowel sounds are active. SKIN: no suspicious lesions, warm and dry. EXTREMITIES: no clubbing, cyanosis, or edema. NEUROLOGIC: nonfocal, motor strength of upper/lower extremities intact , sensory exam intact. Assessment: * Assessment: 1. N guillermina congestion - R09.81 (Primary) 2 . M orbid (severe) obesity due to excess calories - E66.01 3 . A cute non-recurrent sinusitis, unspecified location - J01.90 Plan: * Treatment: 2. A cute non-recurrent sinusitis, unspecified location Notes:Rest and drink more liquids, especially water. You may use a humidifier or vaporizer to help keep the drainage moist. Izih-zlt-vjoldrs Nasal Saline may help the stuffy and runny nose. Use Ibuprofen and or Tylenol as needed for fever, chills, body aches or pain. Children 5 years old should not be given wnsq-jma-wzvmqkb cough and cold medications such as guaifenesin and dextromethorphan. If you're over age 5, you may try fgja-bve-vfurvxx cold medications such as guaifenesin and dextromethorphan, or multi-symptom cold reliever such as Dayquil to help reduce the symptoms. Antibiotics have been prescribed. You should take these until completed and follow the directions. Antibiotics can sometimes cause upset stomach, and in rare cases, serious allergic reactions or serious gastrointestinal problems. If you start having severe abdominal pain, severe vomiting, or bloody diarrhea, you should be reevaluated by your physician or urgent care immediately. Follow up with your Primary Care Provider or return to clinic if symptoms do not improve within 3-5 days * Labs: * L ab: COVID-19, Flu A+B IH (Collection Date & Time - 11/03/2024) Value Reference Range C OVID neg * F MURALI A neg * F MURALI B neg * C ontrol pos * Procedure Codes: 8 7804 INFLUENZA, Modifiers: QW 75092 INFECTIOUS AGENT ANTIGEN COVID 19, Modifiers: QW * Follow Up: 3 -5 days if not improving * * Sign off status: Completed Visit Status: C HK (Check Out) true * Provider: Danni Alvarez ([facility])MD Date: 0 11/03/2024 Generated for Printi ng/Faxing/eTransmitting on: 0 03/11/2025 10:40 AM EDT History and Physical Notes * HPI (History of Present Illness) Category Sub-Category Detail Notes Category Not es Depression Screening PHQ-9 Little inte rest or pleasure in doing things: More than half the days Feeling down, depressed, or hopeless: No t at all Trouble falling or staying a sleep, or sleeping too much: More than half the days Feeling tired or having little energy: N early every day Poor appetite or overeating: Nearly ever y day Feeling bad about yourself o r that you are a failure, or have let yourself or your family down: Not at all Trouble concentrating on thi ngs, such as reading the newspaper or watching television: Not at all Moving or speaking so slowly that other people could have noticed; or the opposite, being so fidgety or restless that you have been moving around a lot more than usual: Not at all Thoughts that you would be b rose mary off or of hurting yourself in some way: Not at all Total Score: 10 Interpretation: Moderate Depression Depression Screening PHQ-2 (2015 Edition) Total Score: 2 Little interest or pleasure in doing thi ngs?: More than half the days Feeling down, depressed, or hopeless?: N ot at all Examination Category Sub-Category Detail Notes Category Not es General Examination GENERAL APPEARANCE: in no ac maggie distress, well developed, well nourished ENT: ear and nose externa l appearance normal, tympanic membranes clear bilaterally, facial tenderness to palpation over sinuses EYES: pupils equal, round, reactive to light and accomodations NECK: neck supple, full ra nge of motion, no cervical lymphadenopathy CARDIO: no murmurs, regular rate and rhythm, S1, S2 normal LUNGS: clear to auscultatio n bilaterally ABDOMEN: soft, nontender , no t distended, bowel sounds are active NEUROLOGIC: nonfocal, motor stre ngth of upper/lower extremities intact , sensory exam intact SKIN: no suspicious lesion s, warm and dry EXTREMITIES: no clubbing, cyanosi s, or edema ORAL CAVITY: mucosa moist
--- OUTSIDE RECORDS SUMMARY | 2024-11-20 05:40 | XMS_ITS ---
Author Organization [facility] in [place] Address [address] [place] [address] Care Team Providers Care Run Boat Operator Name Role Phone Lalit Alvarez Primary Care Provider [phone] REASON FOR VISIT UTI Medications Medication SIG (Take, Route, Frequency, Duration) Notes Start Date End Date Status Ciprofloxacin HCl 500 MG 1 tablet Orally every 12 hrs for 10 days 11/03/2024 Active Pyridium 200 MG 1 tablet after meals Orally Three times a day for 2 days 11/20/2024 Active Encounters Encounter Location Date Provider Diagnosis [facility] [address] [place] [address] 11/20/2024 Lalit Alvarez Nasal congestion R09.81 Assessments Encounter Date Diagnosis (ICD Code) Assessment Notes Treatment Notes Treatment Clinical Notes Section Notes 11/20/2024 Nasal congestion (ICD-10 - R09.81) Plan Of Treatment Medication Medication Name Sig Start Date Stop Date Notes Ciprofloxacin HCl 500 MG 1 tablet Orally every 12 hrs for 10 days 11/03/2024 Pyridium 200 MG 1 tablet after meals Orally Three times a day for 2 days 11/20/2024 Progress Notes * Ayse GATES LDOB:[birth year] (79 yo F)Acc No.[id number]:11/20/2024 Patient: Trell BARTHOLOMEWAyse :1945 A ge:79 Y S ex:Female Address:[address] [place] [address], [address] * Refills Refill Ciprofloxacin HCl Tablet, 500 MG, Orally, 20 Tablet, 1 tablet, every 12 hrs, 10 days Start Pyridium Tablet, 200 MG, Orally, 9, 1 tablet after meals, Three times a day, 2 days * true * Date: Generated for Shira cruz/Bryn/Molina on: 0 03/11/2025 10:40 AM EDT
--- OUTSIDE RECORDS SUMMARY | 2025-03-11 10:40 | XMS_ITS | Clinical Summary ---
Author Organization [facility] Address [address] [place] [address] Phone Care Team Providers Care Philosophy And Religion Instructor Name Role Phone Unavailable Primary Care Provider Unavailabl e Social History Tobacco Use Types Packs/Day Years Used Date Smoking Tobacco: Never Assessed Comments Unknown Sex and Gender Information Value Date Recorded Sex Assigned at Not on file Legal Sex Female 7:58 PM EST Gender Identity Not on file Sexual Orientation Not on file Plan of Treatment Not on file
--- OUTSIDE RECORDS SUMMARY | 2025-03-11 10:40 | XMS_ITS | Encounter Summary ---
Author Organization [facility] Address [address] [place] [address] Care Team Providers Care Peanut Picker Name Role Phone Suresh Alvarez MD Primary Care Provider [phone] Capri Stuart DO Unavailable [phone] Azeb Renae INSPECTOR [employer] Unavailable [phone] Suresh Alvarez MD Primary Care Provider [phone] Encounter Details Date Type Department Care Team (Late st Contact Info) Description 07/10/2024 External Result Encounter [facility] External Department Unsolicited Gretta Norwood DPM [address] [facility] [address] [place] [address] Social History Tobacco Use Types Packs/Day Years Used Date Smoking Tobacco: Never Smokeless Tobacco: Never Alcohol Use Standard Drinks/Week Comments Never 0 (1 standard drink = 0.6 oz pure alcohol) caffeine intake: 3-4 cups per day Comments Unknown Sex and Gender Information Value Date Recorded Sex Assigned at Not on file Legal Sex Female 7:25 PM EDT Gender Identity Not on file Sexual Orientation Not on file documented as of this encounter Plan of Treatment Upcoming Encounters Date Type Department Care Team (Late st Contact Info) Description 05/03/2025 10:15 AM EDT Procedure Visit [facility] [address] [facility] [address] [place] [address] Gretta Norwood DPM [address] [address] [place] [address] documented as of this encounter Procedures Procedure Name Priority Date/Time Associated Diagnosis Comments XR FOOT 1-2 VIEWS LEFT 07/10/2024 4:04 PM EDT documented in this encounter Results * XR foot 1 or 2 views left (07/10/2024 4:04 PM EDT) Anatomical Region Laterality Modality Lower Extremities, Foot Left [facility] 07/10/2024 4:04 PM EDT Impressions 07/10/2024 4:07 PM EDT Intraoperative views demonstrate needle localization along the tarsometatarsal junctions at the base of the third and fourth digits. Impression dictated by: Marshal Eastman M.D.07/10/2024 4:05 PM Dictation Location: [place] [address] Transcribed By: [facility] 07/10/24 1605 Dictated By: Marshal Eastmna II, MD 07/10/24 1604 Signed By: <Electronically signed by Marshal Eastman II, MD in OV> 07/10/24 1605 Narrative 07/10/2024 4:07 PM EDT [facility] Main [place] [address] [place] [address] XRay Report Signed Patient: Ayse Heller MR#: [id number] : 1945 Acct:[id number] Age/Sex: 79 / F ADM Date: 07/10/24 Loc: [place] Room: Type: [facility] Attending Dr: Gretta Norwood DPM Copies to: Gretta Norwood DPM Ordering Provider: Gretta Norwood DPM Date of Service: 07/10/24 XR/XR [...] mGy: 0.369 mGy XR/XR foot LT 2V Procedure Note Marshal Eastman MD - 07/10/2024 [facility] Main [place] [address] [place] [address] XRay Report Signed Patient: Ayse Heller LMR#: [id number] : 3Acct:[id number] Age/Sex: 79 / FADM Date: 07/10/24 Loc: [place] Room:Type: [facility] Attending Dr: Gretta Norwood DPM Copies to: Gretta Norwood DPM Ordering Provider: Gretta Norwood DPM Date of Service: 07/10/24 XR/XR foot LT 2V: LEFT FOOT INJECTION XR foot LT 2V 07/10/2024 12:35 PM SIGNS AND SYMPTOMS: LEFT FOOT INJECTION PROTOCOL: Intraoperative views of the left foot COMPARISON: None FINDINGS: Intraoperative views demonstrate needle localization along thetarsometatarsal junctions at the base of the third and fourth digits. Cumulative Air Kerma in mGy: 0.369 mGy XR/XR foot LT 2V IMPRESSION: Intraoperative views demonstrate needle localization along thetarsometatarsal junctions at the base of the third and fourth digits. Impression dictated by: Marshal Eastman M.D.07/10/2024 4:05 PM Dictation Location: [place] [address] Transcribed By: [facility] 07/10/24 1605 Dictated By: Marshal Eastman II, MD 07/10/24 1604 Signed By: <Electronically signed by Marshal Eastman II, MD inOV> 07/10/24 1605 us Gretta Norwood DPM IMG XR PROCEDURES Final Re sult documented in this encounter Visit Diagnoses Not on filedocumented in this encounter Care Teams Peanut Picker Relationship Specialty Start Date End Date Suresh Alvarez MD PCP - General Family Medicine 02/20/23 02/17/25 Suresh Alvarez MD [address] [place] [address] PCP - General Family Medicine 02/18/25 Capri Stuart DO [address] [place] [address] Referring Physician Neurology 09/29/24 Azeb Renae NP [address] [place] [address] Nurse Practitioner Neurology 09/29/24 documented as of this encounter
--- OUTSIDE RECORDS SUMMARY | 2025-03-11 10:41 | XMS_ITS | Encounter Summary ---
Author Organization [facility] Address [address] [place] [address] Care Team Providers Care Flavorer Name Role Phone Suresh Alvarez MD Primary Care Provider + Capri Stuart DO Unavailable [phone] Azeb Renae SLABBER LIGHT Unavailable [phone] Suresh Alvarez MD Primary Care Provider + Encounter Details Date Type Department Care Team (Late Contact Info) Description 03/12/2023 Abstract [facility] [address] [facility] [address] [place] [id number] Tia García LPN Social History Tobacco Use Types Packs/Day Years Used Date Smoking Tobacco: Never Assessed Comments Unknown Sex and Gender Information Value Date Recorded Sex Assigned at Not on file Legal Sex Female 7:25 PM EDT Gender Identity Not on file Sexual Orientation Not on file documented as of this encounter Plan of Treatment Upcoming Encounters Date Type Department Care Team (Late Contact Info) Description 05/03/2025 10:15 AM EDT Procedure Visit [facility] [address] [facility] [address] [place] [address] Gretta Norwood DPM [address] [facility] [address] [place] [address] documented as of this encounter Visit Diagnoses Not on filedocumented in this encounter Care Teams Flavorer Relationship Specialty Start Date End Date Suresh Alvarez MD PCP - General Family Medicine 02/20/23 02/17/25 Suresh Alvarez MD [address] [facility] [place] [address] PCP - General Family Medicine 02/18/25 Capri Stuart DO [address] [place], [place] [id number] Referring Physician Neurology 09/29/24 Azeb Renae NP [address] [place] [address] Nurse Practitioner Neurology 09/29/24 documented as of this encounter
--- OUTSIDE RECORDS SUMMARY | 2025-03-11 10:41 | XMS_ITS | Clinical Summary ---
Author Organization [facility] Address [address] [facility] [place] [address] Care Team Providers Care Residence Hall Director Name Role Phone Capri Stuart DO Unavailable Azeb Renae [employer] SCHEDULER Unavailable [phone] Suresh Alvarez MD Primary Care Provider [phone] Allergies Active Allergy Reactions Criticality Noted Date Comments Amoxicillin 03/12/2023 Nitrofurantoin 03/12/2023 Penicillins 03/12/2023 Phenazopyridine 06/18/2024 Sulfacetamide 03/12/2023 Medications meloxicam (Mobic) 7.5 MG tablet Take 7.5 mg by mouth in the morning. Active diphenhydrAMINE -acetaminophen (Tylenol PM) 25-500 MG per tablet Take 1 tablet by mouth as needed at bedtime for sleep. Active mirtazapine (Remeron) 15 MG tabletIndicatio ns:Hypersomnia TAKE 1/2 TO 1 TABLET BY MOUTH EVERYDAY AT BEDTIME 90 tablet 1 10/21/2024 Active Active Problems Problem Noted Date Diagnosed Date Arm paresthesia, left 06/15/2024 Right hand paresthesia 06/15/2024 Carpal tunnel syndrome, bilateral upper limbs Encounters Date Type Department Care Team Description 02/24/2025 9:00 AM EDT Procedure Visit [facility] [address] [facility] [address] [place] [address] Gretta Norwood DPM Onychomycosis (Primary Dx); Pain in both feet; Neuropathy; Osteoarthritis of left ankle and foot; Corns and callosities 02/24/2025 Bamboo flowsheet [facility] [address] [place] [address] Gretta Norwood DPM 02/24/2025 Travel 01/11/2025 10:40 AM EDT [place] [id number] [place] [phone] Azeb eRnae NP MYRIAM (obstructive sleep apnea) (Primary Dx); Obesity due to excess calories, unspecified class, unspecified whether serious comorbidity present; Hypersomnia; Arm paresthesia, left 01/11/2025 [employer] flowsheet [place] [address] [place] [phone] Azeb Renae NP from Last 3 Months Family History Medical History Relation Name Comments Cancer Father Heart disease Mother Relation Name Status Comments Father Mother Social History Tobacco Use Types Packs/Day Years Used Date Smoking Tobacco: Never Smokeless Tobacco: Never Tobacco Cessation:Counseling Given: Not Answered Alcohol Use Standard Drinks/Week Comments Never 0 (1 standard drink = 0.6 oz pure alcohol) caffeine intake: 3-4 cups per day Comments Unknown Sex and Gender Information Value Date Recorded Sex Assigned at Not on file Legal Sex Female 7:25 PM EDT Gender Identity Not on file Sexual Orientation Not on file Last Filed Vital Signs Vital Sign Reading Time Taken Comments Blood Pressure 132/84 01/11/2025 10:44 AM EDT Pulse 80 01/11/2025 10:44 AM EDT Temperature - - Respiratory Rate - - Oxygen Saturation 96% 01/11/2025 10:44 AM EDT Inhaled Oxygen Concentration - - Weight 99.8 kg (220 lb) 01/11/2025 10:44 AM EDT Height 160 cm (5' 3 ) 01/11/2025 10:44 AM EDT Body Mass Index 38.97 01/11/2025 10:44 AM EDT Plan of Treatment Upcoming Encounters Date Type Department Care Team (Late st Contact Info) Description 05/03/2025 10:15 AM EDT Procedure Visit [facility] [address] [place] [phone] Gretta Norwood DPM [address] [facility] [address] [place] [address] Health Maintenance Due Date Last Done Comments Pneumococcal Vaccine: 65+ Ye ars (2 of 2 - PCV) 12/15/2016 12/16/2015 Influenza Vaccine Completed 07/03/2024, , 06/19/2022, Additional history exists Insurance [employer] MED[employer]ARE [employer]VANTAGE Care Teams Residence Hall Director Relationship Specialty Start Date End Date Suresh Alvarez MD [address] [facility] [place] [address] PCP - General Family Medicine 02/18/25 Capri Stuart DO [address] [place] [id number] Referring Physician Neurology 09/29/24 Azeb Renae NP [address] [place] [phone] Nurse Practitioner Neurology 09/29/24
--- NOTE | 2025-03-11 10:43 | MM_ITS ---
Patient Name: HE GATES MR#: [id number] : 1945 Exam Date: 03/11/2025 Ordering Doctor: DR CALLUM LOZANO . RADIOLOGY REPORT PROCEDURE: MM TOMOSYNTHESIS SCREENING BI COMPARISON: MM TOMOSYNTHESIS SCREENING BI, 03/09/2024. MM TOMOSYNTHESIS SCREENING BI, 03/07/2023. MG MAMM ANGELICA DIAG W CAD DIG, 02/23/2013. INDICATIONS: Screening Calculator Name NCI Breast Cancer Risk Assessment Tool 5 Year Breast Cancer Risk 1.70% Lifetime Breast Cancer Risk 2.30% Personal Breast Cancer No Personal Ovarian Cancer No Treatments None Family Cancers Father with prostate cancer at age ~80; Grandmother-paternal with lung cancer at age ~80. LOCATION: [facility] BREAST COMPOSITION: There are scattered areas of fibroglandular density. FINDINGS: RIGHT BREAST: No significant suspicious finding. Similar focal asymmetries in neutral benign calcifications and benign appearing lymph nodes . LEFT BREAST: No significant suspicious finding. Similar focal asymmetries in neutral benign calcifications and benign appearing lymph nodes . DIAGNOSTIC CATEGORY 2--BENIGN FINDING: RECOMMENDATIONS: ROUTINE MAMMOGRAM AND CLINICAL EVALUATION IN 12 MONTHS. PLEASE NOTE: A NORMAL MAMMOGRAM DOES NOT EXCLUDE THE POSSIBILITY OF BREAST CANCER. A CLINICALLY SUSPICIOUS PALPABLE LUMP SHOULD BE BIOPSIED. Dictated by: Marshal Eastman MD on 03/11/2025 at 14:14 Approved by: Marshal Eastman MD on 03/11/2025 at 14:17
== END 2025-03-11 10:38 | disposition home or self-care (01) ==
PROVIDERS: PCP Psychiatry & Neurology Neurology; Visit Provider Family Medicine
DX: Z12.31 Encounter for screening mammogram for malignant neoplasm of breast (principal); Z80.42 Family history of malignant neoplasm of prostate; Z80.1 Family history of malignant neoplasm of trachea, bronchus and lung
CPT/HCPCS: 77063; 77067

== ENCOUNTER 2025-03-17 08:36 | Outpatient (OUT) | payer MEDICARE, SELFPAY ==
--- NOTE | 2025-03-17 08:58 | XR_ITS ---
The [address] [address] Patient Name: HE GATES MRN: [id number] date: 1945 Sex: F Assigned Patient Location: [facility] Current Patient Location: [facility] Accession/Order Number: [id number] Exam Date: 03/17/2025 09:53 Report Date: 03/17/2025 09:56 At the request of: ASHKAN HODGSON DPM Procedure: XR ankle RT min 3V RIGHT ANKLE - 3 views CLINICAL DATA: Chronic right ankle pain. No history of injury. COMPARISON: None Weightbearing AP, lateral and oblique views were obtained. There is osteopenia. There is no acute fracture or dislocation. There is narrowing of the medial tibiotalar joint space and subchondral sclerosis. There are enthesophytes at the malleoli and chronic-appearing bony ossicles posterior to the ankle on the lateral view. There are tiny calcaneal spurs. There is soft tissue swelling, greater medially. XR/XR ankle RT min 3V IMPRESSION: OSTEOPENIA AND DEGENERATIVE CHANGES. NO ACUTE BONY FINDINGS. Impression dictated by: Katiuska Pandey M.D. 03/17/2025 9:56 AM Dictation Location: [place] [address] Electronically authenticated by: [id number] Y Date: 03/17/2025 09:56
== END 2025-03-17 08:37 | disposition home or self-care (01) ==
LOC: RAD 08:38
PROVIDERS: PCP Family Medicine; Visit Provider Podiatrist Foot & Ankle Surgery
DX: M25.571 Pain in right ankle and joints of right foot (principal); M85.871 Other specified disorders of bone density and structure, right ankle and foot
CPT/HCPCS: 73610

== ENCOUNTER 2025-06-15 08:46 | Outpatient (RCR) | payer MEDICARE, SELFPAY | END 2025-06-23 13:12 | disposition home or self-care (01) | LOC: PT 08:46 | PROVIDERS: PCP Family Medicine; Visit Provider Podiatrist Foot & Ankle Surgery | DX: M25.571 Pain in right ankle and joints of right foot (principal); M76.811 Anterior tibial syndrome, right leg | CPT/HCPCS: 97035; 97110; 97163; G0283 ==